=== PATIENT | male | born 1985 | race Two or more races ===

== ENCOUNTER 2020-03-17 07:34 | Emergency (ER) | payer MEDICAID, OTHER ==
[~2020-03-17] VITALS: Ht 170.2 cm; Wt 97.5 kg
[2020-03-17 08:20] VITALS: BP 148/90
== END 2020-03-17 09:15 | disposition home or self-care (01) ==
LOC: ER 07:34
DX: S01.21XA Laceration without foreign body of nose, initial encounter (principal); R04.0 Epistaxis; R51.9 Headache, unspecified; X58.XXXA Exposure to other specified factors, initial encounter; Y93.89 Activity, other specified; Y92.89 Other specified places as the place of occurrence of the external cause; Y99.8 Other external cause status
CPT/HCPCS: 30901

== ENCOUNTER 2020-03-19 07:45 | Emergency (ER) | payer MEDICAID ==
[~2020-03-19] VITALS: Ht 170.2 cm; Wt 97.5 kg
[2020-03-19 07:47] VITALS: BP 140/92
== END 2020-03-19 08:36 | disposition home or self-care (01) ==
LOC: ER 07:45
DX: Z48.02 Encounter for removal of sutures (principal); Z76.0 Encounter for issue of repeat prescription

== ENCOUNTER 2021-07-04 19:02 | Emergency (ER) | payer MEDICAID ==
[~2021-07-04] VITALS: Ht 170.2 cm; Wt 102.1 kg
[2021-07-05 00:44] VITALS: BP 140/98
[2021-07-05] MEDS ORDERED: ACETAMINOPHEN 325 MG TAB PO ONE (01:15)
== END 2021-07-05 01:55 | disposition left against medical advice (07) ==
LOC: ER 19:07
DX: R50.9 Fever, unspecified (principal); R05.9 Cough, unspecified; R11.0 Nausea; Z20.822 Contact with and (suspected) exposure to COVID-19; Z53.21 Procedure and treatment not carried out due to patient leaving prior to being seen by health care provider
CPT/HCPCS: 36415; 71045; 87804